=== PATIENT | female | born 1965 | race Caucasian/White ===

== ENCOUNTER 2018-08-24 01:34 | Inpatient (IN) | payer MEDICAID ==
[~2018-08-24] VITALS: Ht 170.2 cm; Wt 100.0 kg
[2018-08-24] MEDS ORDERED: ACETAMINOPHEN 325 MG TAB PO STA (01:47)
[2018-08-24] MEDS ORDERED: SODIUM CHLORIDE 0.9% 1L BAG IV* STA (01:47)
[2018-08-24] MEDS ORDERED: LEVOFLOXACIN 500MG/D5W (PMX) 100 ML IVPB STA (03:28)
[2018-08-24] MEDS ORDERED: AZTREONAM 2 GM in SOD CHLORIDE 0.9% 100 ML IVPB STA (03:28)
[2018-08-24] MEDS ORDERED: ACETAMINOPHEN 325 MG TAB PO PRN (04:00)
[2018-08-24] MEDS ORDERED: NACL 0.9% 3 ML SYG IV SCH (04:00)
[2018-08-24] MEDS ORDERED: DOCUSATE SODIUM 100 MG CAP PO PRN (04:00)
[2018-08-24] MEDS ORDERED: BISACODYL (EC) 5 MG TAB PO PRN (04:00)
[2018-08-24] MEDS ORDERED: ASA/ACETAMINOPHEN/CAFF TAB PO ONE (06:00)
--- NOTE | 2018-08-24 06:04 | ERD ---
ER Documentation Chief Complaint Chief Complaint fever/headache x 5 days HPI This is a 53-year-old female complains of fever headache and body aches for 5 days. Denies fevers chills nausea vomiting. Denies any other current complai nts. Patient has had body aches for the past 2 to 3 days. Denies any other current issues. ROS All systems reviewed and are negative except as per history of present illness. Medications Home Meds No Active Prescriptions or Reported Meds Allergies Allergies: Coded Allergies: Penicillins (Verified Allergy, Unknown, 08/24/18) PMhx/Soc Medical and Surgical Hx: pt denies Medical Hx, pt denies Surgical Hx Hx Alcohol Use: No Hx Substance Use: Yes (METHAMPHETAMINE ) Hx Tobacco Use: No Smoking Status: Never smoker Physical Exam Vitals Vital Signs Date Temp Pulse Resp B/P (MAP) Pulse Ox O2 O2 Flow FiO2 Time Delivery Rate 08/24/18 99.3 89 15 110/61 96 Room Air 05:26 (77) 08/24/18 101.1 99 21 127/61 96 Room Air 02:55 (83) 08/24/18 39.7 02:09 08/24/18 103.5 108 22 134/83 98 Room Air 02:01 (100) 08/24/18 102.3 115 20 137/82 96 01:39 (100) Physical Exam Const: No acute distress Head: Atraumatic Eyes: Normal Conjunctiva ENT: Normal External Ears, Nose and Mouth. Neck: Full range of motion. No meningismus. Resp: Clear to auscultation bilaterally Cardio: Regular rate and rhythm, no murmurs Abd: Soft, non tender, non distended. Normal bowel sounds Skin: No petechiae or rashes Back: No midline or flank tenderness Ext: No cyanosis, or edema Neur: Awake and alert Psych: Normal Mood and Affect Result Diagram: 08/24/18 0157 08/24/18 015 Results 24 hrs Laboratory Tests Test 08/24/18 01:57 08/24/18 05:24 White Blood Count 12.5 10^3/ul Red Blood Count 4.90 10^6/ul Hemoglobin 14.4 g/dl Hematocrit 43.4 % Mean Corpuscular Volume 88.6 fl Mean Corpuscular Hemoglobin 29.4 pg Mean Corpuscular Hemoglobin Concent 33.2 g/dl Red Cell Distribution Width 12.4 % Platelet Count 245 10^3/UL Mean Platelet Volume 10.9 fl Immature Granulocytes % 0.500 % Neutrophils % 82.9 % Lymphocytes % 7.6 % Monocytes % 8.5 % Eosinophils % 0.1 % Basophils % 0.4 % Nucleated Red Blood Cells % 0.0 /100WBC Immature Granulocytes # 0.060 10^3/ul Neutrophils # 10.4 10^3/ul Lymphocytes # 1.0 10^3/ul Monocytes # 1.1 10^3/ul Eosinophils # 0.0 10^3/ul Basophils # 0.1 10^3/ul Nucleated Red Blood Cells # 0.0 10^3/ul Prothrombin Time 14.7 Sec Prothrombin Time Ratio 1.1 INR International Normalized Ratio 1.14 Activated Partial Thromboplast Time 37.2 Sec Urine Color CHIRAG Urine Clarity CLOUDY Urine pH 5.0 Urine Specific [place] 1.031 Urine Ketones NEGATIVE mg/dL Urine Nitrite NEGATIVE mg/dL Urine Bilirubin NEGATIVE mg/dL Urine Urobilinogen 2+ mg/dL Urine Leukocyte Esterase NEGATIVE Kalpesh/ul Urine Microscopic RBC 7 /HPF Urine Microscopic WBC 18 /HPF Urine Squamous Epithelial Cells MANY /HPF Urine Bacteria FEW /HPF Urine Mucus MANY /HPF Urine Hemoglobin 2+ mg/dL Urine Glucose NEGATIVE mg/dL Urine Total Protein 3+ mg/dl Sodium Level 137 mmol/L Potassium Level 3.6 mmol/L Chloride Level 99 mmol/L Carbon Dioxide Level 26 mmol/L Anion Gap 12 Blood Urea Nitrogen 11 mg/dl Creatinine 0.88 mg/dl Est Glomerular Filtrat Rate mL/min > 60 mL/min Glucose Level 126 mg/dl POC Venous Lactate 1.1 mmol/L Calcium Level 9.0 mg/dl Total Bilirubin 0.4 mg/dl Direct Bilirubin 0.00 mg/dl Indirect Bilirubin 0.4 mg/dl Aspartate Amino Transf (AST/SGOT) 24 IU/L Alanine Aminotransferase (ALT/SGPT) 20 IU/L Alkaline Phosphatase 84 IU/L Troponin I < 0.012 ng/ml Total Protein 8.4 g/dl Albumin 4.2 g/dl Globulin 4.20 g/dl Albumin/Globulin Ratio 1.00 Lactic Acid Level 0.5 mmol/L Current Medications Medications Dose Sig/Mary Start Time Status Last (Trade) Ordered Route PRN Stop Time Admin Dose Reason Admin Sodium 2,530 ml BOLUS OVER 2 08/24/18 DC 08/24/18 Chloride HOURS STAT 01:47 02:10 (NS) IV* 08/24/18 01:48 650 mg ONCE STAT 08/24/18 DC 08/24/18 Acetaminophen PO 01:47 02:09 (Tylenol 08/24/18 01:48 Tab) Aztreonam 2 100 ml @ ONCE STAT 08/24/18 DC 08/24/18 gm/ Sodium 100 mls/hr IVPB 03:28 03:39 Chloride 08/24/18 04:27 100 ml @ ONCE STAT 08/24/18 DC Levofloxacin/ 100 mls/hr IVPB 03:28 Dextrose 08/24/18 04:27 IV Flush 3 ml PER 08/24/18 (NS 3 ml) PROTOCOL IV 04:00 650 mg Q6H PRN 08/24/18 Acetaminophen PO .PAIN 1-3 04:00 (Tylenol OR TEMP Tab) Docusate 100 mg Q12H PRN 08/24/18 Sodium PO 04:00 (Colace) .CONSTIPATION Bisacodyl 5 mg DAILY PRN 08/24/18 (Dulcolax) PO 04:00 .CONSTIPATION Heparin 5,000 unit Q8 SC 08/24/18 Sodium 06:00 (Porcine) (Heparin (5000 Units/1ml)) 150 ml @ Q24H IVPB 08/25/18 DC Levofloxacin/ 100 mls/hr 04:00 Dextrose 08/25/18 04:00 150 ml @ Q24H IVPB 08/25/18 Levofloxacin/ 100 mls/hr 04:00 Dextrose 1 tab ONCE ONCE 08/24/18 Acetaminophen PO 06:00 / 08/24/18 06:01 Aspirin/Caffe ine (Excedrin) Procedures/MDM EKG: Rate/Rhythm: [Normal Sinus Rhythm] QRS, ST, T-waves: [No changes consistent w/ acute ischemia] Impression: [No evidence of ischemia or arrhythmia] Chest X-ray 1V Interpreted by me: Soft Tissue: No acute abnormalities Bones: No acute abnormalities Mediastinum/Cardiac Silhouette/Lungs: [No acute abnormalities] Medical decision making: This is a female with evidence of early pyelonephritis, however she does not have sepsis. Start antibiotics and given fluid bolus. I do not feel she has sepsis as her heart rate normalized completely with fluid resuscitation and lactic acid is negative. Patient will be admitted to medical surgical floor for pyelonephritis to the hospitalist Departure Diagnosis: Primary Impression: Pyelonephritis Condition: Serious DYAN PARKER August 24, 2018 06:04
--- NOTE | 2018-08-24 06:05 | HP ---
Date/Time of Note Date/Time of Note DATE: 08/24/18 TIME: 05:51 Assessment/Plan VTE Prophylaxis SCD applied (from Nsg): Yes Pharmacological prophylaxis: NA/contraindicated Pharm contraindication: low risk/ambulating Lines/Catheters IV Catheter Type (from Nrsg): Saline Lock Assessment/Plan Hospital Course This is a 53-year-old female being admitted to the [facility] floor for: #1 sepsis: Secondary likely to underlying pneumonia, possible UTI versus other. Patient was given Levaquin and aztreonam in the emergency department. We will continue Levaquin 750 mg IV daily. Initial lactic acid levels within normal values. Will repeat lactic acid. Await culture results. #2 headaches: Patient has negative Kernig's negative Brudzinski sign. Patient does not appear to be encephalopathic. Her symptoms could very well be migrainous in nature however also could be a result of patient's sepsis. Currently on antibiotics. Will treat her with Excedrin at the current time. #3 suspect community-acquired pneumonia: Chest x-ray shows signs of possible consolidation, currently on Levaquin. #4 abnormal chest x-ray: Aside from the infiltrates, there also appears to be adenopathy/ mass. Recommendation was for CT of the chest with IV contrast which has been ordered. #5 possible UTI: Urinalysis is negative for nitrites and leuk esterase, however patient reports foul-smelling urine. Will treat as per #1. Await urine culture results. #6 obesity: We will check a hemoglobin A1c, lipid panel, TSH #7 DVT GI prophylaxis: SCDs, no GI prophylaxis indicated #8 tobacco use: Encourage cessation Further treatment strategy will be implemented as per the clinical course. Result Diagram: 08/24/18 0157 08/24/18 0157 Results 24hrs Laboratory Tests Test 08/24/18 01:57 White Blood Count 12.5 H Red Blood Count 4.90 Hemoglobin 14.4 Hematocrit 43.4 Mean Corpuscular Volume 88.6 Mean Corpuscular Hemoglobin 29.4 Mean Corpuscular Hemoglobin Concent 33.2 Red Cell Distribution Width 12.4 Platelet Count 245 Mean Platelet Volume 10.9 H Immature Granulocytes % 0.500 H Neutrophils % 82.9 H Lymphocytes % 7.6 L Monocytes % 8.5 Eosinophils % 0.1 Basophils % 0.4 Nucleated Red Blood Cells % 0.0 Immature Granulocytes # 0.060 H Neutrophils # 10.4 H Lymphocytes # 1.0 Monocytes # 1.1 H Eosinophils # 0.0 Basophils # 0.1 Nucleated Red Blood Cells # 0.0 Prothrombin Time 14.7 Prothrombin Time Ratio 1.1 INR International Normalized Ratio 1.14 Activated Partial Thromboplast Time 37.2 H Urine Color CHIRAG Urine Clarity CLOUDY A Urine pH 5.0 Urine Specific [place] 1.031 H Urine Ketones NEGATIVE Urine Nitrite NEGATIVE Urine Bilirubin NEGATIVE Urine Urobilinogen 2+ H Urine Leukocyte Esterase NEGATIVE Urine Microscopic RBC 7 H Urine Microscopic WBC 18 H Urine Squamous Epithelial Cells MANY A Urine Bacteria FEW A Urine Mucus MANY A Urine Hemoglobin 2+ H Urine Glucose NEGATIVE Urine Total Protein 3+ H Sodium Level 137 Potassium Level 3.6 Chloride Level 99 Carbon Dioxide Level 26 Anion Gap 12 Blood Urea Nitrogen 11 Creatinine 0.88 Est Glomerular Filtrat Rate mL/min > 60 Glucose Level 126 POC Venous Lactate 1.1 Calcium Level 9.0 Total Bilirubin 0.4 Direct Bilirubin 0.00 Indirect Bilirubin 0.4 Aspartate Amino Transf (AST/SGOT) 24 Alanine Aminotransferase (ALT/SGPT) 20 Alkaline Phosphatase 84 Troponin I < 0.012 Total Protein 8.4 H Albumin 4.2 Globulin 4.20 H Albumin/Globulin Ratio 1.00 HPI/ROS Admit Date/Time Admit Date/Time Hx of Present Illness Chief complaint: Headaches since , fevers This is a 53-year-old female with a past history of migraines who presents with headaches and fever. Patient reports that she started experiencing migraine- like symptoms on . She reports similar episodes in the past for which she took Excedrin. She states that she is sensitive to light. She denies any neck pain or neck stiffness or confusion. She reports that she also felt febrile at home but did not check her temperature. She reports that she had an on and off cough. She does report that she has foul-smelling urine. Denies any chest pain or nausea vomiting. She denies any recent travel or any sick contacts. Denies any night sweats or weight loss. Allergies: Penicillin Medications: None ROS Const: As per HPI Eyes : No pain discharge or redness or change in visual acuity ENT: No pain, sore throat, congestion, congestion, dysphagia or discharge Respiratory: As per HPI Cardiovascular: No chest pain, palpitation, PND, or edema GI : no change in appetite, abdominal pain, nausea, vomiting, diarrhea, constipation, or change in the color his stool Genitourinary: As per HPI Musculoskeletal: No joint pain, back pain, neck pain, restricted range of motion in neck or joints Skin: No rash, bruising or hives Neuro: As per HPI Endocrine: No polyuria, polydipsia, temperature intolerance Psych: No hallucination, depression, anxiety or suicidal ideation PMH/Family/Social Past Medical History Migraine Medications Current Medications IV Flush (NS 3 ml) 3 ml PER PROTOCOL IV ; Start 08/24/18 at 04:00 Acetaminophen (Tylenol Tab) 650 mg Q6H PRN PO .PAIN 1-3 OR TEMP; Start 08/24/18 at 04:00 Docusate Sodium (Colace) 100 mg Q12H PRN PO .CONSTIPATION; Start 08/24/18 at 04:00 Bisacodyl (Dulcolax) 5 mg DAILY PRN PO .CONSTIPATION; Start 08/24/18 at 04:00 Heparin Sodium (Porcine) (Heparin (5000 Units/1ml)) 5,000 unit Q8 SC ; Start 08/24/18 at 06:00 Levofloxacin/ Dextrose 150 ml @ 100 mls/hr Q24H IVPB ; Start 08/25/18 at 04:00; Status UNV Acetaminophen/ Aspirin/Caffeine (Excedrin) 1 tab ONCE ONCE PO ; Start 08/24/18 at 06:00; Stop 08/24/18 at 06:01; Status UNV Coded Allergies: codeine (Verified Allergy, Intermediate, Vomiting, 08/24/18) Penicillins (Verified Allergy, Unknown, 08/24/18) Past Surgical History x2,? Ovary removal Family History Significant Family History: no pertinent family hx Social History Alcohol Use: none Smoking Status: Current every day smoker Drug Use: none Exam/Review of Systems Vital Signs Vitals Vital Signs Date Temp Pulse Resp B/P (MAP) Pulse Ox O2 O2 Flow FiO2 Time Delivery Rate 08/24/18 99.3 89 15 110/61 96 Room Air 05:26 (77) Exam Exam General: Patient is a pleasant female, currently reporting migraine-like symptoms HEENT: Atraumatic, normocephalic. The pupils are equal, round and reactive. Extraocular motor are intact Neck: Supple with full range of motion. No nuchal rigidity or meningismus Chest: Nontender Lungs: Coarse breath sounds bilaterally Heart: Normal S1-S2, Regular rhythm and rate. No murmur, S3, or S4 Abdomen: Soft , nontender, nondistended , bowel sounds are present. No guarding no rebound tenderness , No masses or organomegaly. No costovertebral temporal angle mass Extremities: Normal to inspection, no edema no cyanosis Neurologic: Normal mental status, speech normal, cranial nerves II through XII are intact, motor and sensory are intact, no focal weakness negative Kernig's, negative Brudzinski's SMITH WAGNER August 24, 2018 06:01
[2018-08-24] MEDS ORDERED: SOD CHLORIDE 0.9% 100 ML ONE (06:35)
[2018-08-24] MEDS ORDERED: IOHEXOL 300MG/ML 150 ML BTL ONE (06:35)
[2018-08-24] MEDS: HEPARIN 5,000 UNIT/1 ML VIAL SC SCH ×3 (07:08→22:01)
[2018-08-24 07:56] VITALS: BP 104/61; PULSE 78; RESP 18
[2018-08-24 08:51] VITALS: Ht 170.2 cm; Wt 100.0 kg
--- NOTE | 2018-08-24 10:38 | PN ---
Date/Time of Note Date/Time of Note DATE: 08/24/18 TIME: 10:31 Assessment/Plan VTE Prophylaxis Risk score (from Nsg)>0 risk: 2 SCD applied (from Nsg): Yes Pharmacological prophylaxis: NA/contraindicated Pharm contraindication: low risk/ambulating Lines/Catheters IV Catheter Type (from Nrsg): Peripheral IV Assessment/Plan Assessment/Plan 53 yo woman history of migraine presents with community-acquired pneumonia #Community-acquired pneumonia #Sepsis - No recent hospitalizations or other healthcare exposure. No recent travel. - Symptoms acute onset since (5 days [employer]). Prior to this feeling well with no constitutional symptoms. - CT shows dense right upper lobe consolidation. - Fevers and malaise but no cough or hypoxia. - She reports penicillin allergy. Instead of ceftriaxone/azithro will do levofloxacin. Will do IV for now, patient is vomiting. #Migraine - History of migraine. She rarely takes medications, excedrin helps when it's really bad. - Currently asymptomatic. - Negative Kernig's negative Brudzinski sign. Neck supple, no photophobia. I am not concerned about meningitis. #Pyuria - Foul smelling urine without dysuria. - Levofloxacin as above. #obesity: We will check a hemoglobin A1c, lipid panel, TSH # DVT GI prophylaxis: SCDs, no GI prophylaxis indicated # tobacco use: Encourage cessation Result Diagram: 08/24/1815608/24/18156 Subjective 24 Hr Interval Summary Free Text/Dictation No acute overnight events. Patient feeling well, very sleepy. Denies any recent travel (last was going to [facility] a year ago), no hospitalizations. Had two episodes of bilious emesis this morning. Exam/Review of Systems Exam Vitals Vital Signs Date Temp Pulse Resp B/P (MAP) Pulse Ox O2 O2 Flow FiO2 Time Delivery Rate 08/24/18 98.0 78 18 104/61 97 Room Air 07:56 (75) Exam General: Well developed woman lying in bed, somnolent but arousable, no acute distress. HEENT: Atraumatic, normocephalic. Neck: Supple with full range of motion. No nuchal rigidity or meningismus. No lymphadenopathy. Chest: Nontender Lungs: Clear lung sounds bilaterally. Heart: Normal S1-S2, Regular rhythm and rate. No murmur, S3, or S4 Abdomen: Soft , nontender, nondistended , bowel sounds are present. Extremities: Normal to inspection, no edema no cyanosis Skin: Very warm and diaphoretic. Results Results 24hrs Laboratory Tests Test 08/24/18 01:57 08/24/18 05:24 08/24/18 07:33 White Blood Count 12.5 H Red Blood Count 4.90 Hemoglobin 14.4 Hematocrit 43.4 Mean Corpuscular Volume 88.6 Mean Corpuscular Hemoglobin 29.4 Mean Corpuscular Hemoglobin Concent 33.2 Red Cell Distribution Width 12.4 Platelet Count 245 Mean Platelet Volume 10.9 H Immature Granulocytes % 0.500 H Neutrophils % 82.9 H Lymphocytes % 7.6 L Monocytes % 8.5 Eosinophils % 0.1 Basophils % 0.4 Nucleated Red Blood Cells % 0.0 Immature Granulocytes # 0.060 H Neutrophils # 10.4 H Lymphocytes # 1.0 Monocytes # 1.1 H Eosinophils # 0.0 Basophils # 0.1 Nucleated Red Blood Cells # 0.0 Prothrombin Time 14.7 Prothrombin Time Ratio 1.1 INR International Normalized Ratio 1.14 Activated Partial Thromboplast Time 37.2 H Urine Color CHIRAG Urine Clarity CLOUDY A Urine pH 5.0 Urine Specific [place] 1.031 H Urine Ketones NEGATIVE Urine Nitrite NEGATIVE Urine Bilirubin NEGATIVE Urine Urobilinogen 2+ H Urine Leukocyte Esterase NEGATIVE Urine Microscopic RBC 7 H Urine Microscopic WBC 18 H Urine Squamous Epithelial Cells MANY A Urine Bacteria FEW A Urine Mucus MANY A Urine Hemoglobin 2+ H Urine Glucose NEGATIVE Urine Total Protein 3+ H Sodium Level 137 Potassium Level 3.6 Chloride Level 99 Carbon Dioxide Level 26 Anion Gap 12 Blood Urea Nitrogen 11 Creatinine 0.88 Est Glomerular Filtrat Rate mL/min > 60 Glucose Level 126 POC Venous Lactate 1.1 Calcium Level 9.0 Total Bilirubin 0.4 Direct Bilirubin 0.00 Indirect Bilirubin 0.4 Aspartate Amino Transf (AST/SGOT) 24 Alanine Aminotransferase (ALT/SGPT) 20 Alkaline Phosphatase 84 Troponin I < 0.012 Total Protein 8.4 H Albumin 4.2 Globulin 4.20 H Albumin/Globulin Ratio 1.00 Lactic Acid Level 0.5 1.0 Medications Medication Current Medications IV Flush (NS 3 ml) 3 ml PER PROTOCOL IV ; Start 08/24/18 at 04:00 Acetaminophen (Tylenol Tab) 650 mg Q6H PRN PO .PAIN 1-3 OR TEMP; Start 08/24/18 at 04:00 Docusate Sodium (Colace) 100 mg Q12H PRN PO .CONSTIPATION; Start 08/24/18 at 04:00 Bisacodyl (Dulcolax) 5 mg DAILY PRN PO .CONSTIPATION; Start 08/24/18 at 04:00 Heparin Sodium (Porcine) (Heparin (5000 Units/1ml)) 5,000 unit Q8 SC Last administered on 08/24/18at 07:08; Admin Dose 5,000 UNIT; Start 08/24/18 at 06:00 Levofloxacin/ Dextrose 150 ml @ 100 mls/hr Q24H IVPB ; Start 08/25/18 at 04:00 DEANNA CARREON MD August 24, 2018 10:38
[2018-08-24 14:44] VITALS: BP 112/68; PULSE 80; RESP 18
[2018-08-24 19:49] VITALS: BP 115/58; PULSE 63; RESP 18
[2018-08-25 01:59] VITALS: BP 125/70; PULSE 89; RESP 16
[2018-08-25] MEDS ORDERED: LEVOFLOXACIN 750MG/D5W (PMX) 150 ML IVPB SCH ×2 (04:00)
[2018-08-25] MEDS: HEPARIN 5,000 UNIT/1 ML VIAL SC SCH ×2 (05:33→14:00)
[2018-08-25] MEDS ORDERED: ASA/ACETAMINOPHEN/CAFF TAB PO ONE (06:30)
[2018-08-25 08:30] VITALS: BP 112/62; RESP 18
[2018-08-25] MEDS ORDERED: POTASSIUM CHLORIDE 20 MEQ POWDER FOR ORAL SOLN PO ONE (08:30)
[2018-08-25 09:06] VITALS: BP 122/73; PULSE 71; RESP 18
[2018-08-25] MEDS ORDERED: LEVO750T8 PO (10:42)
--- NOTE | 2018-08-25 10:44 | PDOCDIS ---
Discharge Instructions DIAGNOSIS Discharge Diagnosis Community-acquired pneumonia CONDITION [id number] Patient Condition: [id number] Good HOME CARE INSTRUCTIONS: [id number] Diet Instructions: [id number] Regular ACTIVITY: [id number] Activity Restrictions: [id number] No Restrictions FOLLOW UP/APPOINTMENTS Follow-up Plan 1. Take 7 days of oral levofloxacin. It's been sent to [facility] on [id number] ([address]). 2. See your primary care doctor in 1-2 weeks. 3. You may develop cough productive of sputum. This is not necessarily cause for alarm. Can take [id number] cough syrup if symptoms are uncomfortable. 4. If you do develop severe shortness of breath at rest, return to the emergency room. DEANNA CARREON MD August 25, 2018 10:44
--- NOTE | 2018-08-25 15:07 | DS ---
Date/Time of Note Date/Time of Note DATE: 08/25/18 TIME: 14:55 Discharge Summary Admission/Discharge Info Admit Date/Time August 24, 2018 at 03:50 Discharge Date/Time August 25, 2018 Discharge Diagnosis Community-acquired pneumonia Patient Condition: Good Hx of Present Illness Chief complaint: Headaches since , fevers This is a 53-year-old female with a past history of migraines who presents with headaches and fever. Patient reports that she started experiencing migraine- like symptoms on . She reports similar episodes in the past for which she took Excedrin. She states that she is sensitive to light. She denies any neck pain or neck stiffness or confusion. She reports that she also felt febr ile at home but did not check her temperature. She reports that she had an on and off cough. She does report that she has foul-smelling urine but no dysuria or flank pain. Denies any chest pain or nausea vomiting. She denies any recent travel or any sick contacts. Denies any night sweats or weight loss. Allergies: Penicillin Medications: None Hospital Course CXR showed right upper lobe infiltrate and CT chest confirmed dense confluent right upper lobe pneumonia with hilar adenopathy. The patient denied any recent travel, sick exposure. She also had no constitutional symptoms prior to fevers on . Therefore I had low suspicion of tuberculosis or other atypical infection. I also did not suspect malignancy. Due to penicillin allergy she was started on levofloxacin. Hospital course complicated by a few episodes of bilious vomiting and also migraine headache. But at the time of discharge she was tolerating diet x24 hours, ambulating, breathing comfortably on room air. Home Meds Active Scripts Levofloxacin* (Levofloxacin*) 750 Mg Tablet, 750 MG PO DAILY, #7 TAB Prov:DEANNA CARREON MD 08/25/18 Follow-up Plan 1. Take 7 days of oral levofloxacin. It's been sent to [facility] on ([address]). 2. See your primary care doctor in 1-2 weeks. 3. You may develop cough productive of sputum. This is not necessarily cause for alarm. Can take [id number] cough syrup if symptoms are uncomfortable. 4. If you do develop severe shortness of breath at rest, return to the emergency room. Primary Care Provider Care Physician No Primary Time spent on discharge: > 30 minutes Pending Labs Laboratory Tests Test 08/25/18 04:51 White Blood Count 7.7 10^3/ul (4.8-10.8) Red Blood Count 4.35 10^6/ul (4.20-5.40) Hemoglobin 12.8 g/dl (12.0-16.0) Hematocrit 39.0 % (37.0-47.0) Mean Corpuscular Volume 89.7 fl (82.0-101.0) Mean Corpuscular Hemoglobin 29.4 pg (29.0-33.0) Mean Corpuscular Hemoglobin Concent 32.8 g/dl (32.0-37.0) Red Cell Distribution Width 12.8 % (11.5-14.5) Platelet Count 233 10^3/UL (140-415) Mean Platelet Volume 10.9 fl (7.4-10.4) Immature Granulocytes % 0.500 % (0.001-0.429) Neutrophils % 71.7 % (39.0-77.0) Lymphocytes % 14.1 % (15.0-51.0) Monocytes % 12.1 % (0.0-11.0) Eosinophils % 0.8 % (0.0-7.0) Basophils % 0.8 % (0.0-2.0) Nucleated Red Blood Cells % 0.0 /100WBC (0.0-0.0) Immature Granulocytes # 0.040 10^3/ul (0.0-0.031) Neutrophils # 5.5 10^3/ul (1.6-7.5) Lymphocytes # 1.1 10^3/ul (0.8-2.9) Monocytes # 0.9 10^3/ul (0.3-0.9) Eosinophils # 0.1 10^3/ul (0.0-0.5) Basophils # 0.1 10^3/ul (0.0-0.1) Nucleated Red Blood Cells # 0.0 10^3/ul (0.0-0.0) Sodium Level 140 mmol/L (135-144) Potassium Level 3.1 mmol/L (3.5-5.1) Chloride Level 104 mmol/L (97-110) Carbon Dioxide Level 26 mmol/L (21-31) Anion Gap 10 (5-13) Blood Urea Nitrogen 8 mg/dl (7-20) Creatinine 0.65 mg/dl (0.44-1.00) Est Glomerular Filtrat Rate mL/min > 60 mL/min (>60) Glucose Level 127 mg/dl (70-220) Hemoglobin A1c 5.6 % (0-5.9) Calcium Level 8.6 mg/dl (8.4-10.2) Magnesium Level 2.1 mg/dl (1.7-2.5) Total Bilirubin 0.4 mg/dl (0.2-1.3) Direct Bilirubin 0.00 mg/dl (0.00-0.20) Indirect Bilirubin 0.4 mg/dl (0-1.1) Aspartate Amino Transf (AST/SGOT) 37 IU/L (15-46) Alanine Aminotransferase (ALT/SGPT) 38 IU/L (13-69) Alkaline Phosphatase 75 IU/L (42-121) Total Protein 7.2 g/dl (6.1-8.1) Albumin 3.5 g/dl (3.3-4.9) Globulin 3.70 g/dl (1.3-3.2) Albumin/Globulin Ratio 0.94 Triglycerides Level 150 mg/dl (0-149) Cholesterol Level 123 mg/dl (100-200) LDL Cholesterol, Calculated 80 mg/dl HDL Cholesterol 13 mg/dl (37-92) Cholesterol/HDL Ratio 9.4 RATIO Thyroid Stimulating Hormone (TSH) 0.918 MIU/L (0.465-4.680) DEANNA CARREON MD August 25, 2018 15:07
--- NOTE | 2018-08-27 14:53 | RADRPT ---
Vent Rate: 98 bpm RR Interval: 0 msec IL Interval: 140 msec QRS Duration: 82 msec QT Interval: 324 msec QTC Interval: 413 msec P-R-T Patrick: 60 - 60 - 52 degrees Normal sinus rhythm Possible Left atrial enlargement Borderline ECG Electronically Signed By: [facility]
== END 2018-08-25 15:10 | disposition home or self-care (01) | DRG 871 ==
LOC: E/R 01:34 → MS1 03:50
PROVIDERS: ADMIT Family Medicine; ATTEND Internal Medicine
DX: A41.9 Sepsis, unspecified organism (principal); J18.9 Pneumonia, unspecified organism; N12 Tubulo-interstitial nephritis, not specified as acute or chronic; R51 Headache; R11.10 Vomiting, unspecified; Z72.0 Tobacco use
CPT/HCPCS: 36415; 70450; 71045; 71260; 80053; 80061; 81001; 83036; 83605; 83735; 84443; 84484; 85025; 85610; 85730; 87086; 93005; 96374; J1644; J1956; J7030; Q9967